=== PATIENT | male | born 1960 | race Caucasian/White ===

== ENCOUNTER 2017-12-20 00:39 | Inpatient (IN) | payer OTHER ==
[2017-12-20] MEDS ORDERED: Naloxone* 0.4 MG/ML 1 ML VIAL ONE (01:29)
--- NOTE | 2017-12-20 01:32 | ED ---
HPI Diabetic - HPI Summary HPI Summary: A 57 y/o M, with PMHx: DM, was BIBA presenting to ED with c/o dizziness onset at least three days ago. According to son, he became aware of the pt's sx three days ago, but they may have started earlier. Pt has had multiple episodes of falling this week. He generally ambulates without problem. Pt lives alone, but his son has been staying with him for the past few days. Pt was seen by his PCP today at approx 1300. Per , pt forgot to put his pants on today and went to his PCP's office in his boxers. Family states this behavior is very unlike him. He has been very lethargic and sleepy today. Around 2300 on 12/19/17, son received a text from pt that was incomprehensible. The son found the pt in the bathroom, he had fallen to the floor from a seated position on the toilet. Pt was not diaphoretic. Per EMS, the pt's sugar was 235 and he was unresponsive upon arrival. At bedside, pt c/o lower back pain which is chronic. He did not eat and did not take his insulin today. Takes Oxycodone, HTN medication. Smokes cigarettes. No ETOH. - History Of Current Complaint Time Seen by Provider: 12/20/17 01:07 Hx Obtained From: Patient, Family/Marble Polisher Hand Onset/Duration: Lasting Days, Still Present Timing: Constant Severity Initially: Severe Severity Currently: Severe Character: Lethargic Associated Signs & Symptoms: Decreased Level of Conciousness - Allergies/Home Medications Allergies/Adverse Reactions: Allergies Allergy/AdvReac Type Severity Reaction Status Date / Time No Known Allergies Allergy Verified 12/20/17 03:58 PMH/Surg Hx/FS Hx/Imm Hx Previously Healthy: No Endocrine/Hematology History: Reports: Hx Diabetes Cardiovascular History: Reports: Hx Hypertension Musculoskeletal History: Reports: Hx Back Problems Infectious Disease History: Denies: Traveled Outside the [place] in Last 30 Days - Social History Occupation: Employed Full-time Lives: Alone - son currently staying with him Review of Systems Negative: Skin Diaphoresis Neurological: Other - pos: dizziness; decreased consciousness; sleepy All Other Systems Reviewed And Are Negative: Yes Physical Exam - Summary Physical Exam Summary: VITAL SIGNS: Reviewed. GENERAL: Patient is a well-developed and nourished MALE who is lying comfortable in the stretcher. Patient is not in any acute respiratory distress. HEAD AND FACE: No signs of trauma. No ecchymosis, hematomas or skull depressions. No sinus tenderness. EYES: PERRLA, EOMI x 2, No injected conjunctiva, no nystagmus. EARS: Hearing grossly intact. Ear canals and tympanic membranes are within normal limits. MOUTH: Oropharynx within normal limits. NECK: Supple, trachea is midline, no adenopathy, no JVD, no carotid bruit, no c- spine tenderness, neck with full ROM. CHEST: Symmetric, no tenderness at palpation LUNGS: Clear to auscultation bilaterally. No wheezing or crackles. CVS: Regular rate and rhythm, S1 and S2 present, no murmurs or gallops appreciated. ABDOMEN: Soft, non-tender. No signs of distention. No rebound no guarding, and no masses palpated. Bowel sounds are normal. EXTREMITIES: FROM in all major joints, no edema, no cyanosis or clubbing. NEURO: Alert and oriented x 3 but has slowed responses. No acute neurological deficits. Follow commands. Somewhat slurred speech. SKIN: Dry and warm Triage Information Reviewed: Yes Vital Signs Reviewed: Yes - Charlotte Coma Scale Best Eye Response: 4 - Spontaneous Best Motor Response: 6 - Obeys Commands Best Verbal Response: 5 - Oriented Coma Scale Total: 15 Diagnostics - Laboratory Result Diagrams: 12/20/17 01:45 12/20/17 03:18 Lab Statement: Any lab studies that have been ordered have been reviewed, and results considered in the medical decision making process. - Radiology CXR Xray Interpretation: Positive (See Comments) - No acute infiltrate. Central line at SVC-RA junction. ET tube above the mathieu. Pending official report. Radiology Interpretation Completed By: ED Physician - CT Brain CT Interpretation: No Acute Changes - IMPRESSION: No acute intracranial pathology is appreciated. ED provider has reviewed this report. CT Interpretation Completed By: Radiologist - EKG 0221 Cardiac Rate: NL - 68bpm EKG Rhythm: Sinus Rhythm EKG Interpretation: nml axis, nml interval, no ischemic changes Re-Evaluation - Re-Evaluation 1 Re-Evaluation Time: 02:00 Change: Worse Comment: Pt became unresponsive. Anshul Gordon called at 0204. 3 Re-Evaluation Time: 03:33 Change: Improved 4 Re-Evaluation Time: 03:41 Change: Unchanged 5 Re-Evaluation Time: 03:54 Change: Unchanged 6 Re-Evaluation Time: 04:09 Comment: Updating family on plan to admit, have nephrology see pt in AM. 7 Re-Evaluation Time: 04:21 8 Re-Evaluation Time: 04:41 Change: Improved Comment: Pt is arousable. Diabetic Course/Dx - Course Course Of Treatment: Pt is a 57 yo M presenting with dizziness, multiple recent falls, episodes of decreased consciousness. Pt is diabetic, per EMS, blood sugar was 235 at scene. EKG shows SR [address] shows no acute findings. Central line and Intubation procedures performed sucessfully, CXR confirmation. Consulted with Dr. Gracia, glue maker, who will see pt in ED. Dr. Gracia will admit pt. - Diagnoses Provider Diagnoses: Acute renal failure, Metabolic acidosis, UTI (urinary tract infection), Respiratory failure, Hypotension, Hypoglycemia During the Visit The Following Alert/Code Occurred: Code Emmanuel - 0204 - Physician Notifications Discussed Care Of Patient With: Savage Costa - nephrology Time Discussed With Above Provider: 04:02 Instructed by Provider To: Other - Discussing pt with MD and plans to admit. MD will see pt in the morning; agrees with current course of action. - Critical Care Time Critical Care Time: 75-104 min Discharge - Sign-Out/Discharge Documenting (check all that apply): Patient Departure - ADM - Discharge Plan Disposition: ADMITTED TO [facility] Referrals: Branden Sampson MD [Primary Care Provider] - - Attestation Statements Document Initiated by Scribe: Yes Documenting Scribe: Shreya Wolff Provider For Whom Scribe is Documenting (Include Credential): Dr. Luis Lopez MD Scribe Attestation: Shreya Cortez scribed for Dr. Luis Lopez MD on 12/20/17 at 0536. Procedures - Central Line 1 Central Line Lumen: triple Central Line Procedure: betadine prep, sterile drapes applied, sterile dressing applied Central Line Position: internal jugular (R) - with U/S guidance Anesthesia: pt intubated and sedated Complications: none Central Line Post Position: sutured, good blood return, position confirmed w/ CXR - Intubation Time of Intubation: 02:40 Intubation Method: orotracheal Tube Size (cm): 8.0 Medications: Pancuronium Breath Sounds after Intubation: equal Intubation Complications: no complications Post Intubation Xray: Yes Consult Consult: At 0227: Consult with Eddie Brady This is unlikely to be a stroke. At 0429: Consult with Dr. Gracia, Knitting Inspector MD will see pt in ED. At 0530: Consult with Dr. Gracia Will admit pt.
[2017-12-20] MEDS ORDERED: Naloxone* 0.4 MG/ML 1 ML VIAL IV PUSH ONE (01:39)
[2017-12-20 01:55] LABS: ABS Basophils 0 10^3/ul (0-0.2); ABS Eosinophils 0 10^3/ul (0-0.6); ABS Lymphocytes 1.9 10^3/ul (1.0-4.8); ABS Monocytes 0.7 10^3/ul (0-0.8); ABS Neutrophils 9.3 10^3/ul (1.5-7.7); ABS Nucleated RBC 0 10^3/ul; Eosinophil % 0.1 % (0-6); Hematocrit 42 % (42-52); Hemoglobin 13.8 g/dl (14.0-18.0); Lymphocyte % 15.7 % (25-47); Mean Corpuscular HGB Conc 33 g/dl (31-36); Mean Corpuscular Hemoglobin 29 pg (27-31); Mean Corpuscular Volume 88 fL (80-94); Mean Platelet Volume 10.2 um3 (7.4-10.4); Nucleated Red Blood Cells % 0; Platelet Count 282 10^3/ul (150-450); Red Blood Count 4.81 10^6/ul (4.00-5.40); Red Cell Distribution Width 14 % (10.5-15); White Blood Count 11.8 10^3/ul (3.5-10.8)
[2017-12-20] MEDS: NS 0.9% 1000 ML* 2,000 ML IV ONE ×5 (02:00→07:41)
[2017-12-20] MEDS ORDERED: NS 0.9% 1000 ML* 1,000 ML IV ONE (02:06)
[2017-12-20 02:11] LABS: EGFR Non-African American 3.4 (>60)
[2017-12-20 02:22] LABS: INR 0.92 (0.77-1.02)
[2017-12-20] MEDS ORDERED: Calcium CHLORIDE 10% SYRINGE* 1 GM/10 ML ONE (02:24)
[2017-12-20] MEDS ORDERED: Sodium Bicarbonate 8.4% IV* 50 ML VIAL ONE (02:24)
[2017-12-20] MEDS ORDERED: Rocuronium* 10 MG/ML VIAL ONE (02:30)
[2017-12-20] MEDS: Midazolam* 1 MG/ML 10 ML VIAL (10 MG) IV ONE ×2 (02:30→02:55)
[2017-12-20] MEDS ORDERED: Etomidate* 2 MG/ML 20 ML VIAL (40 MG) ONE (02:30)
[2017-12-20] MEDS ORDERED: Midazolam* 1 MG/ML 10 ML VIAL (10 MG) ONE (02:54)
[2017-12-20] MEDS ORDERED: Midazolam IV for DRIP* 100 MG in NS 0.9% 100 ML* 80 ML IV SCH ×2 (03:00→04:00)
[2017-12-20] MEDS ORDERED: Norepinephrine 16MCG/ML IVPRE* 4,000 MCG/250 ML BAG IV ONE (03:08)
[2017-12-20] MEDS: Norepinephrine 16MCG/ML IVPRE* 4,000 MCG/250 ML BAG IV SCH ×5 (03:20→06:20)
[2017-12-20] MEDS ORDERED: Vancomycin(*) 1,000 MG in NS 0.9% 250 ML* 250 ML IVPB ONE (03:26)
[2017-12-20] MEDS ORDERED: Piperacillin/Tazobac ADVAN(*) 3.375 GM in NS 0.9% 100 ML* 100 ML IVPB ONE (03:27)
[2017-12-20 03:45] LABS: EGFR Non-African American 4.6 (>60)
[2017-12-20] MEDS ORDERED: Sodium Polystyrene ORAL.SOL* 15 GM/60 ML BTL PO ONE (03:50)
[2017-12-20] MEDS ORDERED: Dextrose 50% VIAL 50 ml IV ONE (03:52)
[2017-12-20] MEDS ORDERED: Dextrose 50% Syringe 50 ML* 25 GM/50 ML SYRINGE ONE (03:52)
[2017-12-20] MEDS ORDERED: NS 0.9% 250 ML* 250 ML ONE (03:54)
[2017-12-20] MEDS ORDERED: NS 0.9% 100 ML* 100 ML ONE (03:55)
[2017-12-20] MEDS ORDERED: Dextrose 50% Syringe 50 ML* 25 GM/50 ML SYRINGE IV PUSH ONE ×2 (03:56→08:22)
[2017-12-20 04:01] LABS: Urine Appearance Cloudy; Urine Blood 2+ (Negative); Urine Color Amber; Urine Ketones Trace (Negative); Urine Protein 2+(100 mg/dL) (Negative); Urine Red Blood Cell 3+(>10/hpf) (Absent); Urine Specific Gravity 1.024 (1.010-1.030); Urine Urobilinogen Negative (Negative); Urine White Blood Cell 1+(6-10/hpf) (Absent)
[2017-12-20] MEDS ORDERED: 1/2 NS IV ONE (04:05)
[2017-12-20] MEDS ORDERED: SODIUM BICARBONATE IV ONE (04:05)
[2017-12-20] MEDS ORDERED: D5W IV ONE (04:05)
[2017-12-20] MEDS ORDERED: fentaNYL* 50 MCG/ML 2 ML VIAL (100 MCG VIAL) ONE (04:36)
[2017-12-20] MEDS ORDERED: fentaNYL* 50 MCG/ML 2 ML VIAL (100 MCG VIAL) IV SLOW PU ONE (04:40)
[2017-12-20] MEDS ORDERED: Midazolam* 1 MG/ML 2 ML VIAL (2 MG) ONE (04:43)
[2017-12-20] MEDS ORDERED: LORazepam INJ* 2 MG/ML 1 ML VIAL IV PUSH PRN (05:29)
[2017-12-20] MEDS ORDERED: fentaNYL PCA* 20 ML PCA SCH (06:00)
[2017-12-20] MEDS ORDERED: Vasopressin* 100 UNITS in D5W 250 ML BAG* 245 ML IVPB SCH (06:30)
--- NOTE | 2017-12-20 06:30 | HP ---
H&P (Free Text) History and Physical: [facility] History and Physical CC: AMS HPI: 57M with htn, hld, dm, cad, presents with AMS. Patient was texting with his son but he said it was gibberish. The son went to his fathers house and found him on the floor. He called EMS and he was found to be hypoglycemic. He was given D10 and brought to the ER. In the ER he was found to be hypoglycemic, hypotensive, hypothermic, and in acute renal failure. He became unresponsive and was intubated. A central line was placed. He was started on iv fluids, pressors, and antibiotics. The patient is unable to provide history. History was obtained from the patients son and the ER staff. The patients son states that he had been feeling weak over the past several weeks. He denies any fever or chills. No cough. No chest pain or shortness of breath. ROS - unable 2/2 critical illness PMHx - htn, hld, dm, cad PSHx - All - nkda SocHx - no drugs, rare etoh, +smoker FamHx - unable PE Vital Signs: Temp Pulse Resp BP Pulse Ox 89.1 F 72 20 103/51 92 12/20/17 04:37 12/20/17 04:37 12/20/17 04:40 12/20/17 04:37 12/20/17 04:37 Gen - intubated and sedated Heent - ncat, eomi, perrl neck - no jvd, +rij tlc cv - s1/s2, no murmur lungs - cta, no wheeze abd - soft, nt ext - no cce neuro - unresponsive Labs Laboratory Results - last 24 hr 12/20/17 12/20/17 12/20/17 01:45 01:45 01:45 WBC 11.8 H RBC 4.81 Hgb 13.8 L Hct 42 MCV 88 MCH 29 MCHC 33 RDW 14 Plt Count 282 MPV 10.2 Neut % (Auto) 78.5 Lymph % (Auto) 15.7 L Cheatham % (Auto) 5.6 Eos % (Auto) 0.1 Baso % (Auto) 0.1 Absolute Neuts (auto) 9.3 H Absolute Lymphs (auto) 1.9 Absolute Monos (auto) 0.7 Absolute Eos (auto) 0 Absolute Basos (auto) 0 Absolute Nucleated RBC 0 Nucleated RBC % 0 INR (Anticoag Therapy) APTT Patient Temperature ABG pH ABG pH (Temp Correct) ABG pCO2 ABG pCO2 (Temp Corrct ABG pO2 ABG pO2 (Temp Correct ABG HCO3 ABG O2 Saturation ABG Base Excess Respiration Rate O2 Delivery Device Ventilator Type Vent Mode FiO2 Inspiratory Time PEEP Pressure Support Pressure Control EPAP IPAP BiPAP Sodium 131 L Potassium 7.8 H* Chloride 91 L Carbon Dioxide 10 L* Anion Gap 30 H BUN 135 H Creatinine 14.88 H Est GFR ( Amer) 4.1 Est GFR (Non-Af Amer) 3.4 BUN/Creatinine Ratio 9.1 Glucose 137 H POC Glucose (mg/dL) Lactic Acid 8.9 H* Calcium 9.4 Total Bilirubin 0.70 AST 14 ALT 11 Alkaline Phosphatase 93 Total Creatine Kinase 265 H Troponin I 0.01 Total Protein 7.2 Albumin 3.9 Globulin 3.3 Albumin/Globulin Ratio 1.2 Triglycerides 364 Cholesterol 173 LDL Cholesterol 76 HDL Cholesterol 24.4 TSH 0.38 Urine Color Urine Appearance Urine pH Ur Specific Valera Urine Protein Urine Ketones Urine Blood Urine Nitrate Urine Bilirubin Urine Urobilinogen Ur Leukocyte Esterase Urine WBC (Auto) Urine RBC (Auto) Urine Bacteria Urine Glucose Salicylates < 2.50 Urine Opiates Screen Acetaminophen < 15 Ur Barbiturates Screen Ur Phencyclidine Scrn Ur Amphetamines Screen U Benzodiazepines Scrn Urine Cocaine Screen U Cannabinoids Screen Serum Alcohol < 10 12/20/17 12/20/17 12/20/17 01:45 03:18 03:18 WBC RBC Hgb Hct MCV MCH MCHC RDW Plt Count MPV Neut % (Auto) Lymph % (Auto) Cheatham % (Auto) Eos % (Auto) Baso % (Auto) Absolute Neuts (auto) Absolute Lymphs (auto) Absolute Monos (auto) Absolute Eos (auto) Absolute Basos (auto) Absolute Nucleated RBC Nucleated RBC % INR (Anticoag Therapy) 0.92 APTT 27.3 Patient Temperature ABG pH ABG pH (Temp Correct) ABG pCO2 ABG pCO2 (Temp Corrct ABG pO2 ABG pO2 (Temp Correct ABG HCO3 ABG O2 Saturation ABG Base Excess Respiration Rate O2 Delivery Device Ventilator Type Vent Mode FiO2 Inspiratory Time PEEP Pressure Support Pressure Control EPAP IPAP BiPAP Sodium 140 D Potassium 5.8 H D Chloride 110 Carbon Dioxide 7 L* Anion Gap 23 H BUN 111 H Creatinine 11.40 H Est GFR ( Amer) 5.6 Est GFR (Non-Af Amer) 4.6 BUN/Creatinine Ratio 9.7 Glucose 44 L* POC Glucose (mg/dL) Lactic Acid 9.3 H* Calcium 7.0 L Total Bilirubin 0.40 AST 9 L ALT 6 L Alkaline Phosphatase 50 Total Creatine Kinase 168 Troponin I Total Protein 3.8 L Albumin 2.1 L Globulin 1.7 L Albumin/Globulin Ratio 1.2 Triglycerides Cholesterol LDL Cholesterol HDL Cholesterol TSH Urine Color Urine Appearance Urine pH Ur Specific Valera Urine Protein Urine Ketones Urine Blood Urine Nitrate Urine Bilirubin Urine Urobilinogen Ur Leukocyte Esterase Urine WBC (Auto) Urine RBC (Auto) Urine Bacteria Urine Glucose Salicylates Urine Opiates Screen Acetaminophen Ur Barbiturates Screen Ur Phencyclidine Scrn Ur Amphetamines Screen U Benzodiazepines Scrn Urine Cocaine Screen U Cannabinoids Screen Serum Alcohol 12/20/17 12/20/17 12/20/17 03:40 03:43 03:43 WBC RBC Hgb Hct MCV MCH MCHC RDW Plt Count MPV Neut % (Auto) Lymph % (Auto) Cheatham % (Auto) Eos % (Auto) Baso % (Auto) Absolute Neuts (auto) Absolute Lymphs (auto) Absolute Monos (auto) Absolute Eos (auto) Absolute Basos (auto) Absolute Nucleated RBC Nucleated RBC % INR (Anticoag Therapy) APTT Patient Temperature Not Reportable ABG pH 7.01 L* ABG pH (Temp Correct) Not Reportable ABG pCO2 24 L ABG pCO2 (Temp Corrct Not Reportable ABG pO2 97 ABG pO2 (Temp Correct Not Reportable ABG HCO3 6.5 L* ABG O2 Saturation 96.1 ABG Base Excess -23.5 L Respiration Rate 14 O2 Delivery Device ventilator Ventilator Type 500 Vent Mode apv/cmv FiO2 30 Inspiratory Time 1.0 PEEP 5 Pressure Support Not Reportable Pressure Control Not Reportable EPAP Not Reportable IPAP Not Reportable BiPAP Not Reportable Sodium Potassium Chloride Carbon Dioxide Anion Gap BUN Creatinine Est GFR ( Amer) Est GFR (Non-Af Amer) BUN/Creatinine Ratio Glucose POC Glucose (mg/dL) Lactic Acid Calcium Total Bilirubin AST ALT Alkaline Phosphatase Total Creatine Kinase Troponin I Total Protein Albumin Globulin Albumin/Globulin Ratio Triglycerides Cholesterol LDL Cholesterol HDL Cholesterol TSH Urine Color Michaela Urine Appearance Cloudy Urine pH 5.0 Ur Specific Valera 1.024 Urine Protein 2+(100 mg/dl) A Urine Ketones Trace A Urine Blood 2+ A Urine Nitrate Negative Urine Bilirubin Negative Urine Urobilinogen Negative Ur Leukocyte Esterase Negative Urine WBC (Auto) 1+(6-10/hpf) A Urine RBC (Auto) 3+(>10/hpf) A Urine Bacteria Absent Urine Glucose 2+(150 mg/dl) A Salicylates Urine Opiates Screen Presumptive positive A Acetaminophen Ur Barbiturates Screen None detected Ur Phencyclidine Scrn None detected Ur Amphetamines Screen None detected U Benzodiazepines Scrn None detected Urine Cocaine Screen None detected U Cannabinoids Screen None detected Serum Alcohol 12/20/17 04:28 WBC RBC Hgb Hct MCV MCH MCHC RDW Plt Count MPV Neut % (Auto) Lymph % (Auto) Cheatham % (Auto) Eos % (Auto) Baso % (Auto) Absolute Neuts (auto) Absolute Lymphs (auto) Absolute Monos (auto) Absolute Eos (auto) Absolute Basos (auto) Absolute Nucleated RBC Nucleated RBC % INR (Anticoag Therapy) APTT Patient Temperature ABG pH ABG pH (Temp Correct) ABG pCO2 ABG pCO2 (Temp Corrct ABG pO2 ABG pO2 (Temp Correct ABG HCO3 ABG O2 Saturation ABG Base Excess Respiration Rate O2 Delivery Device Ventilator Type Vent Mode FiO2 Inspiratory Time PEEP Pressure Support Pressure Control EPAP IPAP BiPAP Sodium Potassium Chloride Carbon Dioxide Anion Gap BUN Creatinine Est GFR ( Amer) Est GFR (Non-Af Amer) BUN/Creatinine Ratio Glucose POC Glucose (mg/dL) 121 H Lactic Acid Calcium Total Bilirubin AST ALT Alkaline Phosphatase Total Creatine Kinase Troponin I Total Protein Albumin Globulin Albumin/Globulin Ratio Triglycerides Cholesterol LDL Cholesterol HDL Cholesterol TSH Urine Color Urine Appearance Urine pH Ur Specific Valera Urine Protein Urine Ketones Urine Blood Urine Nitrate Urine Bilirubin Urine Urobilinogen Ur Leukocyte Esterase Urine WBC (Auto) Urine RBC (Auto) Urine Bacteria Urine Glucose Salicylates Urine Opiates Screen Acetaminophen Ur Barbiturates Screen Ur Phencyclidine Scrn Ur Amphetamines Screen U Benzodiazepines Scrn Urine Cocaine Screen U Cannabinoids Screen Serum Alcohol Imaging CXR 12/20/[address] Chest/Abd/Pel 12/20 Pending Impression 57M with htn, hld, dm, cad presents with AMS. Shock. Acute Renal Failure. Lactic acidosis. Hyperkalemia. Hypothermia. Hypoglycemia. Multiorgan failure. Plan Neuro - AMS - 2/2 hypoglycemia/uremia/sepsis - maintain adequate sedation - check head ct CV - shock - 2/2 sepsis and hypovolemia - iv hydration - levophed for bp support - check tte Pulm - acute respiratory failure - 2/2 AMS - wean vent as tolerated ID - septic shock? - unclear source - empiric vanc/zosyn - f/u cultures - serial lactates GI - npo for now Renal - acute renal failure, hyperkalemia, metabolic acidosis - 2/2 sepsis and volume depletion - serial bmp - bicarb gtt started in ER. continue for now until repeat labs done - renal consult for possible HD Heme - monitor cbc Endo - hypoglycemia - d5 in bicarb gtt - monitor fs q1h - tsh normal Lines - RIJ TLC, Schwartz PPx - gi/dvt Full Code Admit to ICU Critical Care Time: 110 mins
[2017-12-20 06:54] LABS: Hematocrit 38 % (42-52); Hemoglobin 12.1 g/dl (14.0-18.0); Mean Corpuscular HGB Conc 32 g/dl (31-36); Mean Corpuscular Hemoglobin 28 pg (27-31); Mean Corpuscular Volume 88 fL (80-94); Mean Platelet Volume 10.1 um3 (7.4-10.4); Platelet Count 236 10^3/ul (150-450); Red Blood Count 4.27 10^6/ul (4.00-5.40); Red Cell Distribution Width 14 % (10.5-15); White Blood Count 18.5 10^3/ul (3.5-10.8)
[2017-12-20] MEDS ORDERED: Vancomycin per Pharmacy* NOTE FOLLOW UP SCH (07:00)
[2017-12-20] MEDS ORDERED: Zosyn per Pharmacy* NOTE FOLLOW UP SCH (07:00)
--- NOTE | 2017-12-20 07:12 | RAD ---
EXAM: CT Abdomen and Pelvis Without Intravenous Contrast CLINICAL HISTORY: 57 years old, male; Signs and symptoms; Other: Diarrhea/renal failure/code acosta earlier; Dyspnea TECHNIQUE: Axial computed tomography images of the abdomen and pelvis without intravenous contrast. All CT scans at this facility use at least one of these dose optimization techniques: automated exposure control; mA and/or kV adjustment per patient size (includes targeted exams where dose is matched to clinical indication); or iterative reconstruction. Coronal and sagittal reformatted images were created and reviewed. COMPARISON: No relevant prior studies available. FINDINGS: ABDOMEN: Liver: Unremarkable. Gallbladder and bile ducts: Unremarkable. No calcified stones. No ductal dilation. Pancreas: Unremarkable. No ductal dilation. Spleen: Unremarkable. No splenomegaly. Adrenals: Unremarkable. No mass. Kidneys and ureters: There is a 2 cm left renal cyst. No obstructing stones. No hydronephrosis. Stomach and bowel: Unremarkable. No obstruction. No mucosal thickening. PELVIS: Appendix: No findings to suggest acute appendicitis. Bladder: There is a Schwartz catheter noted within a collapsed bladder. No stones. Reproductive: Unremarkable as visualized. ABDOMEN and PELVIS: Intraperitoneal space: Unremarkable. No free air. No significant fluid collection. Bones/joints: There are bilateral iliac stents noted. There are degenerative changes noted in the lower lumbar spine. No acute fracture. No dislocation. Soft tissues: Small umbilical hernia containing mesenteric fat. Vasculature: There is atherosclerotic disease noted. No abdominal aortic aneurysm. Lymph nodes: Unremarkable. No enlarged lymph nodes. Tubes, lines and devices: There is a nasogastric tube noted ending in the stomach lumen. IMPRESSION: No acute findings. EXAM: CT Chest Without Intravenous Contrast CLINICAL HISTORY: 57 years old, male; Signs and symptoms; Other: Diarrhea/renal failure/code acosta earlier; Dyspnea TECHNIQUE: Axial computed tomography images of the chest without intravenous contrast. All CT scans at this facility use at least one of these dose optimization techniques: automated exposure control; mA and/or kV adjustment per patient size (includes targeted exams where dose is matched to clinical indication); or iterative reconstruction. Coronal and sagittal reformatted images were created and reviewed. COMPARISON: No relevant prior studies available. FINDINGS: Lungs: See below. Pleural space: There are bilateral small pleural effusions noted with overlying compressive atelectasis versus consolidation. No pneumothorax. Heart: Scattered coronary artery calcifications. No cardiomegaly. No significant pericardial effusion. Bones/joints: Unremarkable. No acute fracture. No dislocation. Soft tissues: Unremarkable. Vasculature: Unremarkable. No thoracic aortic aneurysm. Lymph nodes: Unremarkable. No enlarged lymph nodes. Tubes, lines and devices: There is endotracheal tube noted ending above the mathieu. There is a right-sided central venous catheter noted. IMPRESSION: There are bilateral small pleural effusions noted with overlying compressive atelectasis versus consolidation. Question aspiration pneumonitis. Recommend clinical correlation. To contact [facility] with a general question: Operations Center - [phone] For direct physician to physician contact: Physician Hotline - [phone] [facility] ([facility] Facility ID #[id number])
[2017-12-20 07:34] LABS: ABS Basophils 0.3 10^3/ul (0-0.2); ABS Eosinophils 0 10^3/ul (0-0.6); ABS Lymphocytes 1.2 10^3/ul (1.0-4.8); ABS Monocytes 1.3 10^3/ul (0-0.8); ABS Neutrophils 15.6 10^3/ul (1.5-7.7); ABS Nucleated RBC 0 10^3/ul; Eosinophil % 0.1 % (0-6); Lymphocyte % 6.6 % (25-47); Nucleated Red Blood Cells % 0.1
[2017-12-20 07:47] LABS: EGFR Non-African American 4.5 (>60)
--- NOTE | 2017-12-20 07:57 | RAD ---
HISTORY: Weakness COMPARISONS: December 26, 2007 VIEWS: 1: frontal AP view of the chest at 4:00 AM FINDINGS: LINES AND TUBES: An endotracheal tube is noted with the tip overlying the trachea between the clavicles and the mathieu. A gastric tube is noted, with the tip in the left upper quadrant in a prepyloric position.. No right internal jugular venous catheter is noted with the tip overlying the cavoatrial junction. CARDIOMEDIASTINAL SILHOUETTE: The cardiomediastinal silhouette is normal for portable technique. PLEURA: The costophrenic angles are sharp. No pleural abnormalities are noted. LUNG PARENCHYMA: There is prominence of the central pulmonary vasculature. ABDOMEN: The upper abdomen is clear. There is no subphrenic gas. BONES AND SOFT TISSUES: No bone or soft tissue abnormalities are noted. IMPRESSION: 1. LINES AND TUBES ABOVE. 2. PULMONARY VASCULAR CONGESTION. R1
[2017-12-20] MEDS ORDERED: ZOSYN 3.375 GM Q12H per EXTENDED INFUSION IVPB SCH ×2 (08:00)
[2017-12-20] MEDS ORDERED: Dextrose 50% Syringe 50 ML* 25 GM/50 ML SYRINGE IV PUSH PRN (08:00)
[2017-12-20] MEDS ORDERED: Insulin REGULAR(*) 1 UNITS UNIT IV PUSH ONE (08:00)
[2017-12-20] MEDS ORDERED: Calcium Gluconate INJ* 1 GM in NS 0.9% 50 ML* 50 ML IVPB ONE (08:00)
--- NOTE | 2017-12-20 08:06 | OP ---
Operative Report - Blank - Operative Report Date of Operation: 12/20/17 Note: Central Venous Catheter (CVC, Central Line) Placement Date: 12/20/17 Time: 7:00am Indication: Hemodynamic monitoring/Intravenous access Attending: Basil Campos time-out was completed verifying correct patient, procedure, site, positioning , and special equipment if applicable. The patient was placed in a dependent position appropriate for central line placement based on the vein to be cannulated. The patients right groin was prepped and draped in sterile fashion. 1% Lidocaine was used to anesthetize the surrounding skin area. A double lumen 13.5-[place] Dialysis catheter was introduced into the the common femoral vein using the Seldinger technique and under ultrasound guidance. The catheter was threaded smoothly over the guide wire and appropriate blood return was obtained. Each lumen of the catheter was evacuated of air and flushed with sterile saline. The catheter was then sutured in place to the skin and a sterile dressing applied. Perfusion to the extremity distal to the point of catheter insertion was checked and found to be adequate. Estimated Blood Loss: minimal The patient tolerated the procedure well and there were no complications.
[2017-12-20] MEDS ORDERED: Sodium Bicarbonate 8.4%* 50 ML SYRINGE IV ONE (08:08)
[2017-12-20] MEDS ORDERED: Lansoprazole susp Kit 3 MG/ML (15 MG = 5 ML) PO SCH (09:00)
[2017-12-20] MEDS ORDERED: Midazolam* 1 MG/ML 2 ML VIAL (2 MG) IV ONE (09:00)
[2017-12-20] MEDS ORDERED: Heparin VIAL(*) 5000 UNITS/ML VIAL (FIVE THOUSAND) SUBCUT SCH (09:00)
--- NOTE | 2017-12-20 09:55 | DS ---
Patient Name: Savage Stovall Admission Date: 12/20/17 Discharge Date: 12/20/17 Attending Physician: Ron Gracia Primary Care Physician: Branden Sampson Consulting Physician(s): Igor (Renal) Condition on Discharge: Critical Final Diagnosis: Acute renal failure (Acute) Acute respiratory failure (Acute) J96.00 CAD (coronary artery disease) (Acute) I25.10 Diabetes (Acute) E11.9 HLD (hyperlipidemia) (Acute) E78.5 HTN (hypertension) (Acute) I10 Hyperkalemia (Acute) E87.5 Lactic acidosis (Acute) E87.2 Sepsis (Acute) Shock (Acute) R57.9 Procedures: CXR 12/20/17 IMPRESSION: 1. LINES AND TUBES ABOVE. 2. PULMONARY VASCULAR CONGESTION. CT Chest 12/20/17 IMPRESSION: There are bilateral small pleural effusions noted with overlying compressive atelectasis versus consolidation. Question aspiration pneumonitis. Recommend clinical correlation. CT Abd/Pel 12/20/17 IMPRESSION: No acute findings. TTE 12/20/17 - Pending RIJ TLC placement Right Femoral HD catheter placement History of Present Illness 57M with htn, hld, dm, cad, presents with AMS. Patient was texting with his son but he said it was gibberish. The son went to his fathers house and found him on the floor. He called EMS and he was found to be hypoglycemic. He was given D10 and brought to the ER. In the ER he was found to be hypoglycemic, hypotensive, hypothermic, and in acute renal failure. He became unresponsive and was intubated. A central line was placed. He was started on iv fluids, pressors, and antibiotics. The patient is unable to provide history. History was obtained from the patients son and the ER staff. The patients son states that he had been feeling weak over the past several weeks. He denies any fever or chills. No cough. No chest pain or shortness of breath. Laboratory/Data Laboratory Results - last 24 hr 12/20/17 12/20/17 12/20/17 01:45 01:45 01:45 WBC 11.8 H RBC 4.81 Hgb 13.8 L Hct 42 MCV 88 MCH 29 MCHC 33 RDW 14 Plt Count 282 MPV 10.2 Neut % (Auto) 78.5 Lymph % (Auto) 15.7 L [place] % (Auto) 5.6 Eos % (Auto) 0.1 Baso % (Auto) 0.1 Absolute Neuts (auto) 9.3 H Absolute Lymphs (auto) 1.9 Absolute Monos (auto) 0.7 Absolute Eos (auto) 0 Absolute Basos (auto) 0 Absolute Nucleated RBC 0 Nucleated RBC % 0 INR (Anticoag Therapy) APTT Patient Temperature ABG pH ABG pH (Temp Correct) ABG pCO2 ABG pCO2 (Temp Corrct ABG pO2 ABG pO2 (Temp Correct ABG HCO3 ABG O2 Saturation ABG Base Excess Respiration Rate O2 Delivery Device Ventilator Type Vent Mode FiO2 Inspiratory Time PEEP Pressure Support Pressure Control EPAP IPAP BiPAP Sodium 131 L Potassium 7.8 H* Chloride 91 L Carbon Dioxide 10 L* Anion Gap 30 H BUN 135 H Creatinine 14.88 H Est GFR ( Amer) 4.1 Est GFR (Non-Af Amer) 3.4 BUN/Creatinine Ratio 9.1 Glucose 137 H POC Glucose (mg/dL) Lactic Acid 8.9 H* Calcium 9.4 Phosphorus Magnesium Total Bilirubin 0.70 AST 14 ALT 11 Alkaline Phosphatase 93 Total Creatine Kinase 265 H Troponin I 0.01 Total Protein 7.2 Albumin 3.9 Globulin 3.3 Albumin/Globulin Ratio 1.2 Triglycerides 364 Cholesterol 173 LDL Cholesterol 76 HDL Cholesterol 24.4 TSH 0.38 Urine Color Urine Appearance Urine pH Ur Specific [place] Urine Protein Urine Ketones Urine Blood Urine Nitrate Urine Bilirubin Urine Urobilinogen Ur Leukocyte Esterase Urine WBC (Auto) Urine RBC (Auto) Urine Bacteria Urine Glucose Salicylates < 2.50 Urine Opiates Screen Acetaminophen < 15 Ur Barbiturates Screen Ur Phencyclidine Scrn Ur Amphetamines Screen U Benzodiazepines Scrn Urine Cocaine Screen U Cannabinoids Screen Serum Alcohol < 10 Blood Type Antibody Screen 12/20/17 12/20/17 12/20/17 01:45 03:18 03:18 WBC RBC Hgb Hct MCV MCH MCHC RDW Plt Count MPV Neut % (Auto) Lymph % (Auto) [place] % (Auto) Eos % (Auto) Baso % (Auto) Absolute Neuts (auto) Absolute Lymphs (auto) Absolute Monos (auto) Absolute Eos (auto) Absolute Basos (auto) Absolute Nucleated RBC Nucleated RBC % INR (Anticoag Therapy) 0.92 APTT 27.3 Patient Temperature ABG pH ABG pH (Temp Correct) ABG pCO2 ABG pCO2 (Temp Corrct ABG pO2 ABG pO2 (Temp Correct ABG HCO3 ABG O2 Saturation ABG Base Excess Respiration Rate O2 Delivery Device Ventilator Type Vent Mode FiO2 Inspiratory Time PEEP Pressure Support Pressure Control EPAP IPAP BiPAP Sodium 140 D Potassium 5.8 H D Chloride 110 Carbon Dioxide 7 L* Anion Gap 23 H BUN 111 H Creatinine 11.40 H Est GFR ( Amer) 5.6 Est GFR (Non-Af Amer) 4.6 BUN/Creatinine Ratio 9.7 Glucose 44 L* POC Glucose (mg/dL) Lactic Acid 9.3 H* Calcium 7.0 L Phosphorus Magnesium Total Bilirubin 0.40 AST 9 L ALT 6 L Alkaline Phosphatase 50 Total Creatine Kinase 168 Troponin I Total Protein 3.8 L Albumin 2.1 L Globulin 1.7 L Albumin/Globulin Ratio 1.2 Triglycerides Cholesterol LDL Cholesterol HDL Cholesterol TSH Urine Color Urine Appearance Urine pH Ur Specific [place] Urine Protein Urine Ketones Urine Blood Urine Nitrate Urine Bilirubin Urine Urobilinogen Ur Leukocyte Esterase Urine WBC (Auto) Urine RBC (Auto) Urine Bacteria Urine Glucose Salicylates Urine Opiates Screen Acetaminophen Ur Barbiturates Screen Ur Phencyclidine Scrn Ur Amphetamines Screen U Benzodiazepines Scrn Urine Cocaine Screen U Cannabinoids Screen Serum Alcohol Blood Type Antibody Screen 12/20/17 12/20/17 12/20/17 03:40 03:43 03:43 WBC RBC Hgb Hct MCV MCH MCHC RDW Plt Count MPV Neut % (Auto) Lymph % (Auto) [place] % (Auto) Eos % (Auto) Baso % (Auto) Absolute Neuts (auto) Absolute Lymphs (auto) Absolute Monos (auto) Absolute Eos (auto) Absolute Basos (auto) Absolute Nucleated RBC Nucleated RBC % INR (Anticoag Therapy) APTT Patient Temperature Not Reportable ABG pH 7.01 L* ABG pH (Temp Correct) Not Reportable ABG pCO2 24 L ABG pCO2 (Temp Corrct Not Reportable ABG pO2 97 ABG pO2 (Temp Correct Not Reportable ABG HCO3 6.5 L* ABG O2 Saturation 96.1 ABG Base Excess -23.5 L Respiration Rate 14 O2 Delivery Device ventilator Ventilator Type 500 Vent Mode apv/cmv FiO2 30 Inspiratory Time 1.0 PEEP 5 Pressure Support Not Reportable Pressure Control Not Reportable EPAP Not Reportable IPAP Not Reportable BiPAP Not Reportable Sodium Potassium Chloride Carbon Dioxide Anion Gap BUN Creatinine Est GFR ( Amer) Est GFR (Non-Af Amer) BUN/Creatinine Ratio Glucose POC Glucose (mg/dL) Lactic Acid Calcium Phosphorus Magnesium Total Bilirubin AST ALT Alkaline Phosphatase Total Creatine Kinase Troponin I Total Protein Albumin Globulin Albumin/Globulin Ratio Triglycerides Cholesterol LDL Cholesterol HDL Cholesterol TSH Urine Color Michaela Urine Appearance Cloudy Urine pH 5.0 Ur Specific [place] 1.024 Urine Protein 2+(100 mg/dl) A Urine Ketones Trace A Urine Blood 2+ A Urine Nitrate Negative Urine Bilirubin Negative Urine Urobilinogen Negative Ur Leukocyte Esterase Negative Urine WBC (Auto) 1+(6-10/hpf) A Urine RBC (Auto) 3+(>10/hpf) A Urine Bacteria Absent Urine Glucose 2+(150 mg/dl) A Salicylates Urine Opiates Screen Presumptive positive A Acetaminophen Ur Barbiturates Screen None detected Ur Phencyclidine Scrn None detected Ur Amphetamines Screen None detected U Benzodiazepines Scrn None detected Urine Cocaine Screen None detected U Cannabinoids Screen None detected Serum Alcohol Blood Type Antibody Screen 12/20/17 12/20/17 12/20/17 04:28 06:30 06:30 WBC 18.5 H RBC 4.27 Hgb 12.1 L Hct 38 L MCV 88 MCH 28 MCHC 32 RDW 14 Plt Count 236 MPV 10.1 Neut % (Auto) 84.7 H Lymph % (Auto) 6.6 L [place] % (Auto) 7.1 H Eos % (Auto) 0.1 Baso % (Auto) 1.5 Absolute Neuts (auto) 15.6 H Absolute Lymphs (auto) 1.2 Absolute Monos (auto) 1.3 H Absolute Eos (auto) 0 Absolute Basos (auto) 0.3 H Absolute Nucleated RBC 0 Nucleated RBC % 0.1 INR (Anticoag Therapy) APTT Patient Temperature ABG pH ABG pH (Temp Correct) ABG pCO2 ABG pCO2 (Temp Corrct ABG pO2 ABG pO2 (Temp Correct ABG HCO3 ABG O2 Saturation ABG Base Excess Respiration Rate O2 Delivery Device Ventilator Type Vent Mode FiO2 Inspiratory Time PEEP Pressure Support Pressure Control EPAP IPAP BiPAP Sodium Potassium Chloride Carbon Dioxide Anion Gap BUN Creatinine Est GFR ( Amer) Est GFR (Non-Af Amer) BUN/Creatinine Ratio Glucose POC Glucose (mg/dL) 121 H Lactic Acid 9.0 H* Calcium Phosphorus Magnesium Total Bilirubin AST ALT Alkaline Phosphatase Total Creatine Kinase Troponin I Total Protein Albumin Globulin Albumin/Globulin Ratio Triglycerides Cholesterol LDL Cholesterol HDL Cholesterol TSH Urine Color Urine Appearance Urine pH Ur Specific [place] Urine Protein Urine Ketones Urine Blood Urine Nitrate Urine Bilirubin Urine Urobilinogen Ur Leukocyte Esterase Urine WBC (Auto) Urine RBC (Auto) Urine Bacteria Urine Glucose Salicylates Urine Opiates Screen Acetaminophen Ur Barbiturates Screen Ur Phencyclidine Scrn Ur Amphetamines Screen U Benzodiazepines Scrn Urine Cocaine Screen U Cannabinoids Screen Serum Alcohol Blood Type Antibody Screen 12/20/17 12/20/17 12/20/17 06:30 06:30 08:15 WBC RBC Hgb Hct MCV MCH MCHC RDW Plt Count MPV Neut % (Auto) Lymph % (Auto) [place] % (Auto) Eos % (Auto) Baso % (Auto) Absolute Neuts (auto) Absolute Lymphs (auto) Absolute Monos (auto) Absolute Eos (auto) Absolute Basos (auto) Absolute Nucleated RBC Nucleated RBC % INR (Anticoag Therapy) APTT Patient Temperature Not Reportable ABG pH < 7.01 L* ABG pH (Temp Correct) Not Reportable ABG pCO2 31 L ABG pCO2 (Temp Corrct Not Reportable ABG pO2 85 ABG pO2 (Temp Correct Not Reportable ABG HCO3 6.4 L* ABG O2 Saturation 94.5 L ABG Base Excess -23.6 L Respiration Rate Not Reportable O2 Delivery Device vent Ventilator Type Not Reportable Vent Mode Not Reportable FiO2 30 Inspiratory Time Not Reportable PEEP Not Reportable Pressure Support Not Reportable Pressure Control Not Reportable EPAP Not Reportable IPAP Not Reportable BiPAP Not Reportable Sodium 138 Potassium 7.7 H* D Chloride 108 Carbon Dioxide 8 L* Anion Gap 22 H BUN 108 H Creatinine 11.69 H Est GFR ( Amer) 5.4 Est GFR (Non-Af Amer) 4.5 BUN/Creatinine Ratio 9.2 Glucose 114 H POC Glucose (mg/dL) Lactic Acid Calcium 7.3 L Phosphorus 8.2 H Magnesium 2.3 Total Bilirubin AST ALT Alkaline Phosphatase Total Creatine Kinase Troponin I Total Protein Albumin Globulin Albumin/Globulin Ratio Triglycerides Cholesterol LDL Cholesterol HDL Cholesterol TSH Urine Color Urine Appearance Urine pH Ur Specific [place] Urine Protein Urine Ketones Urine Blood Urine Nitrate Urine Bilirubin Urine Urobilinogen Ur Leukocyte Esterase Urine WBC (Auto) Urine RBC (Auto) Urine Bacteria Urine Glucose Salicylates Urine Opiates Screen Acetaminophen Ur Barbiturates Screen Ur Phencyclidine Scrn Ur Amphetamines Screen U Benzodiazepines Scrn Urine Cocaine Screen U Cannabinoids Screen Serum Alcohol Blood Type A Negative Antibody Screen Negative Hospital Course The patient was admitted to the ICU. His hyperkalemia was unable to be controlled. Nephrology was consulted for emergent dialysis, however, there was no staff available to administer HD so transfer was arranged to [facility]. Discharge Medications Vancomycin by level Zosyn q6 Bicarb gtt Fentanyl gtt Ativan iv prn Levophed gtt Vasopression gtt Code Status - Full Code
[2017-12-20] MEDS ORDERED: Hydrocortisone INJ* 100 MG VIAL IV SCH (11:00)
--- NOTE | 2017-12-20 11:08 | CONS ---
NEPHROLOGY CONSULTATION NOTE: DATE OF CONSULT: 12/20/17 HISTORY OF PRESENT ILLNESS: Mr. Stovall is a 57-year-old gentleman with a history of diabetes mellitus type 2, hypertension, hyperlipidemia and coronary artery disease. Apparently, he had been texting with his son and making no sense at all. His son went to his house and found him on the floor. He was brought to the hospital where he was found to be hypoglycemic and in acute renal failure. He was unresponsive, required intubation. He is obtunded at the present time. He is hypotensive requiring 2 pressors to maintain his blood pressure. Apparently, he was on lisinopril and metformin amongst other medications but a complete drug list is not available to me. REVIEW OF SYSTEMS: I am unable to collect a review of systems. PHYSICAL EXAMINATION: His blood pressure was 126/64. He has marked chemosis. Pupils are pinpoint. He is anicteric. His chest revealed some upper airway noise. The heart revealed a regular rhythm without murmurs. The abdomen is somewhat distended. Bowel sounds were diminished. I could not feel any organomegaly. Surprisingly, there was no significant edema, though he has marked chemosis and he has received a great deal of fluids. DIAGNOSTIC STUDIES/LAB DATA: Review of his laboratory studies reveals that his white count is 8.5 with hemoglobin of 12.2. pH is less than 7.01, pCO2 is 31, pO2 is 85. Sodium 130 and his potassium is 7.7, it had come down from 7.8 to 5.8 with treatment in the emergency room. He has received some Kayexalate as well as a great deal of bicarbonate. CO2 is 8. BUN 108; creatinine 11.69, down from 14.8 on presentation. Lactic acid is 9. Calcium 7.3 with phosphorus of 8.2. His albumin is 2.1. Urinalysis reveals 2+ protein, 2+ blood, 1+ wbc's , 3+ rbc's, 2+ glucose. His tox screen is negative except for a presumptively positive opiate. IMPRESSION: 1. Acute renal failure. 2. Lactic acidosis. 3. Hyperkalemia. 4. Diabetes mellitus type 2. 5. Hypertension. 6. History of hyperlipidemia. The most likely sequence is that he became ill, was relatively dehydrated and renal function deteriorated and therefore, he got lactic acidosis secondary to metformin. Also, a possibility with this degree of acidosis which has been refractory to significant bicarbonate administration is that he could have ischemic bowel. He probably is going to require emergency dialysis; however, I am not going to be able to get a nurse into the intensive care unit until about 4 o'clock this afternoon. , I have recommended to Dr. Gracia that he be transferred to a facility that can provide that service in a more rapid fashion. [id number]/[facility] #: [id number] MTDJanis
[2017-12-20 11:29] VITALS: BP 93/59
--- NOTE | 2017-12-20 13:04 | ECHO ---
Patient: JEANNIE SCHULTZ Rec#: [id number] : 1960 Date: 12/20/2017 Age: 57y Height: 165.1 cm / 65.0 in Weight: 76.7 kg / 169.0 lbs Sex: M BSA: 1.84 Room#: ICU Admit Date#: 12/20/2017 Type: Inpatient Referring: Ron Gracia DO Reading: Lamine Razo MD Hand Cloth Examiner: Kaila Abreu RN RDCS CC: Branden Sampson MD Transthoracic Echocardiogram Indication: Respiratory distress BP: 86/42 HR: 75 Rhythm: NSR Findings History: CAD, HTN, HLD, DM, smoker. The patient is on mechanical ventilation and a vasopressin drip during the exam. Technical Comments: The study is technically limited due to patient being intubated and on a ventilator. Left Ventricle: The left ventricular chamber size is decreased. Mild concentric left ventricular hypertrophy is observed. Global left ventricular wall motion and contractility are within normal limits. The left ventricle appears hyperdynamic. The estimated ejection fraction is greater than 65%. There is no consistent Doppler evidence of clinically significant diastolic dysfunction. Left Atrium: The left atrial chamber size is normal. Right Ventricle: The right ventricular cavity size is normal. The right ventricular global systolic function is normal. Right Atrium: The right atrial cavity size is normal. Aortic Valve: The aortic valve is trileaflet. The aortic valve leaflets are moderately thickened. Systolic excursion of the aortic valve cusps is reduced. There is no evidence of aortic regurgitation. There is moderate aortic stenosis. The mean gradient of the aortic valve is 12 mmHg. The peak instantaneous gradient of the aortic valve is 20 mmHg. The aortic valve area, by peak velocities, is calculated at 1.3 cm2. The aortic valve area, by VTI's, is calculated at 1.2 cm2. Mitral Valve: The mitral valve leaflets are mildly thickened. There is trace to mild mitral regurgitation. There is no evidence of mitral stenosis. Tricuspid Valve: The tricuspid valve leaflets are normal. There is mild to moderate tricuspid regurgitation. There is evidence of moderate pulmonary hypertension. There is no tricuspid stenosis. Pulmonic Valve: The pulmonic valve structure is not well visualized. There is trace to mild pulmonic regurgitation. There is no pulmonic stenosis. Pericardium: There is no significant pericardial effusion. A pericardial fat pad is visualized. Aorta: The ascending aorta is not well visualized. The aortic arch is not well visualized. There is no dilation of the aortic root. Pulmonary Artery: The main pulmonary artery is not well visualized. Venous: Unable to accurately comment on the size collapsibility of the IVC as the patient in known to be on mechanical ventilation. Summary: There was not any prior study for comparison. Conclusions Global left ventricular wall motion and contractility are within normal limits. The left ventricle appears hyperdynamic. The estimated ejection fraction is greater than 65%. The right ventricular global systolic function is normal. The aortic valve leaflets are moderately thickened. There is moderate aortic stenosis. The mean gradient of the aortic valve is 12 mmHg. There is trace to mild mitral regurgitation. There is mild to moderate tricuspid regurgitation. There is evidence of moderate pulmonary hypertension. There is no significant pericardial effusion. The ascending aorta is not well visualized. Measurements Name Value Normal Range RVDdMajor (2D) 3.6 cm (2.2 - 4.4) RAd ISD 4CH 4.4 cm (3.4 - 4.9) RA (A4C)W 3.6 cm (2.9 - 4.6) IVSd (2D) 1.1 cm (0.6 - 1) LVPWd (2D) 1.1 cm (0.6 - 1) LVIDd (2D) 3.4 cm (3.6 - 5.4) Aortic Annulus 1.7 cm (1.4 - 2.6) Ao root diameter (2D) 2.4 cm (2.1 - 3.5) LA dimension (AP) 2D 3.8 cm (2.3 - 3.8) LAd ISD 4CH 4.5 cm (2.9 - 5.3) LA ISD 4CH W 3.7 cm (2.5 - 4.5) Name Value Normal Range LA ESV SP 4CH (A/L) 43 ml - LA ESV SP 2CH (A/L) 39 ml - LA ESV BP (A/L) 43 ml - LA ESV BP (A/L) index 23 ml/m2 - LA ESV SP 4CH (MOD) 41 ml - LA ESV SP 2CH (MOD) 37 ml - Name Value Normal Range MV E-wave Vmax 1.2 m/sec - MV deceleration time 114 msec - MV A-wave Vmax 0.87 m/sec - MV E:A ratio 1.4 ratio - LV septal e' Vmax 0.09 m/sec - LV lateral e' Vmax 0.1 m/sec - LV E:e' septal ratio 13.3 ratio - LV E:e' lateral ratio 12 ratio - Name Value Normal Range AV Vmax 2.2 m/sec - AV VTI 54.6 cm - AV peak gradient 20 mmHg - AV mean gradient 12 mmHg - LVOT diameter 1.8 cm - LVOT Vmax 1.1 m/sec - LVOT VTI 24.7 cm - LVOT peak gradient 5 mmHg - LVOT mean gradient 3 mmHg - DOI (VTI) 0.45 ratio - DOI (Vmax) 0.5 ratio - SV LVOT 62.8 ml - CO LVOT 4.7 l/min - Cardiac index 2.6 l/min/m2 - ROSY (continuity Vmax) 1.3 cm2 - ROSY (continuity VTI) 1.2 cm2 - Name Value Normal Range TR Vmax 3.3 m/sec - TR peak gradient 44 mmHg - RAP 8 mmHg - RVSP 52 mmHg - IVC diameter 2.4 cm - Name Value Normal Range PV Vmax 1.1 m/sec -
--- NOTE | 2017-12-20 14:23 | RAD ---
EXAM: CT Head Without Intravenous Contrast EXAM DATE/TIME: 12/20/17 (2:13am) CLINICAL HISTORY: 57 year old male. Coma or unconsciousness. Additional info: Neurological changes / code acosta. TECHNIQUE: Axial computed tomography images of the head without intravenous contrast. All CT scans at this facility use at least one of these dose optimization techniques: automated exposure control; mA and/or kV adjustment per patient size (includes targeted exams where dose is matched to clinical indication); or iterative reconstruction. COMPARISON: No relevant prior studies available FINDINGS: Brain: No acute hemorrhage. No cerebral edema. Age-appropriate atrophic changes. Ventricles: Unremarkable. No ventriculomegaly. Bones/joints: Unremarkable. No acute fracture. Soft tissues: Unremarkable. Sinuses: Unremarkable as visualized. No acute sinusitis. Mastoid air cells: Unremarkable as visualized. No mastoid effusion. IMPRESSION: No acute intracranial pathology is appreciated. To contact [facility] with a general question: [facility] - [phone] For direct physician to physician contact: Physician Hotline - [phone] [facility] ([facility] Facility ID #[id number])
[2017-12-21] MEDS ORDERED: Vancomycin Random Level* NOTE FOLLOW UP PRN (06:00)
== END 2017-12-20 11:30 | disposition short-term general hospital (02) | DRG 871 ==
LOC: ED 00:39 → ICU 05:23
PROVIDERS: ADMIT Internal Medicine; ATTEND Internal Medicine
PROC: 0BH17EZ Insertion of Endotracheal Airway into Trachea, Via Natural or Artificial Opening (ICD-10-PCS; principal; 2017-12-20)
PROC: 05HM33Z Insertion of Infusion Device into Right Internal Jugular Vein, Percutaneous Approach (ICD-10-PCS; 2017-12-20)
PROC: 3E043XZ Introduction of Vasopressor into Central Vein, Percutaneous Approach (ICD-10-PCS; 2017-12-20)
PROC: 06HM33Z Insertion of Infusion Device into Right Femoral Vein, Percutaneous Approach (ICD-10-PCS; 2017-12-20)
PROC: B54BZZA Ultrasonography of Right Lower Extremity Veins, Guidance (ICD-10-PCS; 2017-12-20)
PROC: 5A1935Z Respiratory Ventilation, Less than 24 Consecutive Hours (ICD-10-PCS; 2017-12-20)
DX: A41.9 Sepsis, unspecified organism (principal); J96.00 Acute respiratory failure, unspecified whether with hypoxia or hypercapnia; R65.21 Severe sepsis with septic shock; N17.9 Acute kidney failure, unspecified; I10 Essential (primary) hypertension; E78.5 Hyperlipidemia, unspecified; E11.649 Type 2 diabetes mellitus with hypoglycemia without coma; R68.0 Hypothermia, not associated with low environmental temperature; I25.10 Atherosclerotic heart disease of native coronary artery without angina pectoris; F17.210 Nicotine dependence, cigarettes, uncomplicated; E87.5 Hyperkalemia; E86.1 Hypovolemia; W18.11XA Fall from or off toilet without subsequent striking against object, initial encounter; R29.6 Repeated falls; G89.29 Other chronic pain; M54.5 Low back pain; R40.2362 Coma scale, best motor response, obeys commands, at arrival to emergency department; R40.2142 Coma scale, eyes open, spontaneous, at arrival to emergency department; R40.2252 Coma scale, best verbal response, oriented, at arrival to emergency department; E86.0 Dehydration; Y92.002 Bathroom of unspecified non-institutional (private) residence as the place of occurrence of the external cause
CPT/HCPCS: 36415; 36600; 70450; 71045; 71250; 74176; 80048; 80053; 80061; 80307; 80320; 80329; 81003; 81015; 82550; 82803; 83605; 83735; 84100; 84443; 84484; 85025; 85610; 85730; 86850; 86900; 86901; 87040; 87086; 87641; 93005; 93306; 99285; A9270-GY; G0480; J0610; J1644; J2250; J2310; J2543; J3010; J3370